=== PATIENT | female | born 1965 | race Two or more races ===

== ENCOUNTER 2017-03-11 02:59 | Inpatient (IN) | payer OTHER ==
[~2017-03-11] VITALS: Ht 165.1 cm; Wt 116.0 kg
[2017-03-11] VITALS (17 sets, daily range): BP systolic 106–149; BP diastolic 62–85
[~2017-03-11 02:59] MED LIST: CARI-277 PO; DOCU100C8 PO; NOR10T PO; ZOLP5TAB5 PO
[2017-03-11 03:58] LABS: Hematocrit 13.5 % (36.0-46.0); Mean Platelet Volume 7.6 fL (6.9-10.8)
[2017-03-11 04:02] LABS: Mean Corpuscular Volume 67.9 fL (80.0-100.0); Platelet Count (auto) 525 10^3/uL (140-450); Red Cell Distribution Width 19.3 % (11.8-14.3); White Blood Cell 10.7 10^3/uL (4.4-10.8)
[2017-03-11 04:20] LABS: Hemoglobin 3.8 g/dL (12.2-16.2)
[2017-03-11 04:21] LABS: Metamyelocytes % 0; Myelocytes % 0; Promyelocytes % 0; Reactive Lymphocytes 0
[2017-03-11 04:22] LABS: B-Type Natriuretic Peptide 37.39 pg/mL (0-100)
[2017-03-11 04:30] LABS: Albumin 2.7 g/dL (3.4-5.0); Alkaline Phosphatase 137 U/L (45-117); Anion Gap 9 (5-15); Aspartate Aminotransferase 11 U/L (15-37); BUN/Creatinine Ratio 19.8; Bilirubin, Total 0.3 mg/dL (0.2-1.0); Blood Urea Nitrogen 17 mg/dL (7-18); Calcium 8.1 mg/dL (8.5-10.1); Carbon Dioxide 23 mmol/L (21-32); Chloride 105 mmol/L (98-107); GFR African American 89 mL/min; GFR Non-African American 73 mL/min; Glucose 113 mg/dL (74-106); Magnesium 2.4 mg/dL (1.6-2.6); Sodium 137 mmol/L (136-145); Total Protein 7.2 g/dL (6.4-8.2)
[2017-03-11 04:44] LABS: Temperature: 21.9 C (20.0-25.0)
[2017-03-11 05:13] LABS: Anisocytosis Slight; Hypochromia Marked; Microcytosis Marked; Platelet Estimate Increased; Polychromasia Slight
[2017-03-11] MEDS ORDERED: SODIUM CHLORIDE 0.9% 1,000 ML IV ONE (05:15)
[2017-03-11 05:49] LABS: Hematocrit 12.6 % (36.0-46.0)
[2017-03-11 06:13] LABS: Hemoglobin 3.7 g/dL (12.2-16.2)
[2017-03-11] MEDS ORDERED: PIPERACILLIN-TAZOB 3.375GM 50 ML IV ONE (08:15)
[2017-03-11] MEDS ORDERED: TEMAZEPAM 15 MG CAP PO PRN (10:30)
[2017-03-11] MEDS ORDERED: ONDANSETRON HCL 4 MG/2 ML VIAL IV PRN (10:30)
[2017-03-11] MEDS ORDERED: ACETAMINOPHEN 325 MG TAB PO PRN (10:30)
[2017-03-11] MEDS ORDERED: cefTRIAXone 1GM/50ML D5W 50 ML IV ONE (10:30)
[2017-03-11] MEDS ORDERED: NITROGLYCERIN 0.4 MG SL TAB SL PRN (10:30)
[2017-03-11] MEDS ORDERED: DOCUSATE SOD 100 MG CAP PO PRN (10:30)
[2017-03-11] MEDS: SODIUM CHLORIDE 0.9% 1,000 ML IV SCH (11:16)
[2017-03-11] MEDS: ENOXAPARIN SOD 80 MG/0.8ML SYRINGE SC SCH ×3 (11:20→21:16)
[2017-03-11] MEDS: HYDROcodone-ACET 5/325MG TAB PO PRN ×3 (11:37→23:08)
[2017-03-11 12:23] LABS: Urine Bilirubin Negative (Negative); Urine Blood Negative /uL (Negative); Urine Color Yellow (Yellow); Urine Glucose Normal (Normal); Urine Ketone Negative (Negative); Urine Nitrite Negative (Negative); Urine RBC <1 /hpf (0 - 4); Urine Urobilinogen Normal (Negative); Urine pH 6.5 (5.0-8.0)
[2017-03-11] MEDS: CLINDAMYCIN 300MG IV 50 ML IV SCH ×2 (13:04→20:44)
[2017-03-11] MEDS: BOOST PLUS 8 ounce PO SCH ×2 (16:07→18:43)
[2017-03-11 18:17] LABS: Hematocrit 21.3 % (36.0-46.0)
[2017-03-11 18:22] LABS: Hemoglobin 6.8 g/dL (12.2-16.2)
[2017-03-11] MEDS ORDERED: FUROSEMIDE 20 MG/2 ML VIAL IV PRN (18:30)
[2017-03-11] MEDS: ASCORBIC ACID 500 MG TAB PO SCH ×2 (20:45→21:16)
[2017-03-11] MEDS: FAMOTIDINE 20 MG TAB PO SCH ×2 (20:45→21:16)
[2017-03-12] VITALS (10 sets, daily range): BP systolic 110–150; BP diastolic 64–83
[2017-03-12] MEDS: SODIUM CHLORIDE 0.9% 1,000 ML IV SCH ×2 (03:18→21:17)
[2017-03-12] MEDS: CLINDAMYCIN 300MG IV 50 ML IV SCH ×3 (04:27→20:35)
[2017-03-12 05:23] LABS: Basophils # (auto) 0 uL; Basophils % (auto) 0.5 % (0.0-2.0); Eosinophils # (auto) 0.2 uL; Eosinophils % (auto) 2.4 % (0.0-7.0); Hematocrit 25.4 % (36.0-46.0); Hemoglobin 8.1 g/dL (12.2-16.2); Lymphocytes % (auto) 27.1 % (10.0-50.0); Mean Corpuscular Hemoglobin 25.6 pg (28.0-32.0); Mean Corpuscular Hgb Conc. 31.9 g/dL (32.0-36.0); Mean Corpuscular Volume 80.4 fL (80.0-100.0); Mean Platelet Volume 7.9 fL (6.9-10.8); Monocytes # (auto) 0.7 uL; Monocytes % (auto) 9.2 % (0.0-12.0); Neutrophils # (auto) 4.4 uL; Neutrophils % (auto) 60.8 % (37.0-80.0); Nucleated Red Blood Cells % 2.3 %; Platelet Count (auto) 328 10^3/uL (140-450); White Blood Cell 7.3 10^3/uL (4.4-10.8)
[2017-03-12 05:24] LABS: Red Cell Distribution Width 23.4 % (11.8-14.3)
[2017-03-12 05:43] LABS: Albumin 2.2 g/dL (3.4-5.0); BUN/Creatinine Ratio 22.1; Calcium 8.1 mg/dL (8.5-10.1); Potassium 4.2 mmol/L (3.5-5.1)
[2017-03-12 05:46] LABS: Bilirubin, Total 0.3 mg/dL (0.2-1.0); Total Protein 6.1 g/dL (6.4-8.2)
[2017-03-12 06:23] LABS: Anisocytosis Slight; Burr Cells FEW; Platelet Estimate Adequate
[2017-03-12 06:24] LABS: Hypochromia Slight; Ovalocytes FEW
[2017-03-12] MEDS: BOOST PLUS 8 ounce PO SCH ×3 (07:16→17:04)
[2017-03-12] MEDS: cefTRIAXone 1GM/50ML D5W 50 ML IV SCH (08:31)
[2017-03-12] MEDS: ENOXAPARIN SOD 80 MG/0.8ML SYRINGE SC SCH ×2 (09:28→21:20)
[2017-03-12] MEDS: MULTIPLE VITAMIN TAB PO SCH (09:28)
[2017-03-12] MEDS: ZINC SULFATE 220 MG CAP PO SCH (09:28)
[2017-03-12] MEDS: ASCORBIC ACID 500 MG TAB PO SCH ×2 (09:28→21:17)
[2017-03-12] MEDS: FAMOTIDINE 20 MG TAB PO SCH ×2 (09:28→21:18)
[2017-03-12] MEDS: HYDROcodone-ACET 5/325MG TAB PO PRN ×2 (11:49→21:18)
[2017-03-12 20:01] LABS: Hematocrit 27.3 % (36.0-46.0); Hemoglobin 8.8 g/dL (12.2-16.2)
[2017-03-13] MEDS: CLINDAMYCIN 300MG IV 50 ML IV SCH ×3 (05:03→21:16)
[2017-03-13 05:11] VITALS: BP 113/70
[2017-03-13 06:36] LABS: Basophils # (auto) 0.1 uL; Eosinophils # (auto) 0.3 uL; Eosinophils % (auto) 3.5 % (0.0-7.0); Hemoglobin 8.4 g/dL (12.2-16.2); Mean Platelet Volume 7.9 fL (6.9-10.8); Monocytes # (auto) 0.6 uL; Neutrophils # (auto) 5.2 uL; White Blood Cell 8.1 10^3/uL (4.4-10.8)
[2017-03-13 06:39] LABS: Basophils % (auto) 1.3 % (0.0-2.0); Hematocrit 26.7 % (36.0-46.0); Lymphocytes # (auto) 1.9 uL; Lymphocytes % (auto) 23.2 % (10.0-50.0); Mean Corpuscular Hemoglobin 25.1 pg (28.0-32.0); Mean Corpuscular Hgb Conc. 31.4 g/dL (32.0-36.0); Mean Corpuscular Volume 79.8 fL (80.0-100.0); Monocytes % (auto) 7.8 % (0.0-12.0); Neutrophils % (auto) 64.2 % (37.0-80.0); Platelet Count (auto) 378 10^3/uL (140-450)
[2017-03-13 06:42] LABS: Albumin 2.4 g/dL (3.4-5.0); BUN/Creatinine Ratio 19.7; Bilirubin, Total 0.3 mg/dL (0.2-1.0); Calcium 8.1 mg/dL (8.5-10.1); Potassium 4.1 mmol/L (3.5-5.1); Total Protein 6.4 g/dL (6.4-8.2)
[2017-03-13 06:45] LABS: Red Cell Distribution Width 24.3 % (11.8-14.3)
[2017-03-13] MEDS: BOOST PLUS 8 ounce PO SCH ×3 (07:26→17:11)
[2017-03-13 08:00] VITALS: BP 122/78
[2017-03-13] MEDS: HYDROcodone-ACET 5/325MG TAB PO PRN ×2 (08:05→21:17)
[2017-03-13] MEDS: cefTRIAXone 1GM/50ML D5W 50 ML IV SCH (08:05)
[2017-03-13 09:00] VITALS: BP 122/78
[2017-03-13] MEDS: ZINC SULFATE 220 MG CAP PO SCH (09:06)
[2017-03-13] MEDS: ASCORBIC ACID 500 MG TAB PO SCH ×2 (09:07→21:17)
[2017-03-13] MEDS: MULTIPLE VITAMIN TAB PO SCH (09:07)
[2017-03-13] MEDS: FAMOTIDINE 20 MG TAB PO SCH ×2 (09:07→21:17)
[2017-03-13] MEDS: ENOXAPARIN SOD 80 MG/0.8ML SYRINGE SC SCH ×2 (09:07→21:18)
[2017-03-13 10:24] LABS: Anisocytosis Moderate; Platelet Estimate Adequate
[2017-03-13 10:28] LABS: Hypochromia Slight; Large Platelets FEW; Microcytosis Slight; Ovalocytes FEW
[2017-03-13] MEDS: SODIUM CHLORIDE 0.9% 1,000 ML IV SCH (11:35)
[2017-03-13 13:00] VITALS: BP 134/78
[2017-03-13 17:00] VITALS: BP 141/77
[2017-03-13 19:57] LABS: Hemoglobin 8.6 g/dL (12.2-16.2)
[2017-03-13 19:59] LABS: Hematocrit 27.3 % (36.0-46.0)
[2017-03-13] MEDS: MUPIROCIN 2% OINT 22GM EACHNOSTRI SCH (21:16)
[2017-03-13 21:57] VITALS: BP 147/86
[2017-03-14] MEDS: CLINDAMYCIN 300MG IV 50 ML IV SCH ×3 (04:48→21:31)
[2017-03-14 05:09] VITALS: BP 136/77
[2017-03-14] MEDS: SODIUM CHLORIDE 0.9% 1,000 ML IV SCH ×2 (05:40→21:32)
[2017-03-14 06:01] LABS: Basophils # (auto) 0.1 uL; Basophils % (auto) 0.7 % (0.0-2.0); Eosinophils # (auto) 0.4 uL; Monocytes # (auto) 0.6 uL
[2017-03-14 06:05] LABS: Eosinophils % (auto) 4.5 % (0.0-7.0); Hematocrit 25.4 % (36.0-46.0); Hemoglobin 8.1 g/dL (12.2-16.2); Lymphocytes % (auto) 25.1 % (10.0-50.0); Mean Corpuscular Hemoglobin 25.4 pg (28.0-32.0); Mean Corpuscular Hgb Conc. 31.7 g/dL (32.0-36.0); Mean Platelet Volume 7.8 fL (6.9-10.8); Monocytes % (auto) 7.4 % (0.0-12.0); Neutrophils % (auto) 62.3 % (37.0-80.0); Nucleated Red Blood Cells % 0.5 %; Platelet Count (auto) 359 10^3/uL (140-450); White Blood Cell 7.9 10^3/uL (4.4-10.8)
[2017-03-14 06:10] LABS: Red Cell Distribution Width 25.1 % (11.8-14.3)
[2017-03-14 06:35] LABS: Anisocytosis Moderate; Microcytosis Slight; Platelet Estimate Adequate
[2017-03-14 06:36] LABS: Polychromasia Slight
[2017-03-14 06:42] LABS: Albumin 2.3 g/dL (3.4-5.0); BUN/Creatinine Ratio 18.8; Bilirubin, Total 0.3 mg/dL (0.2-1.0); Calcium 8.1 mg/dL (8.5-10.1); Potassium 4.3 mmol/L (3.5-5.1); Total Protein 6.3 g/dL (6.4-8.2)
[2017-03-14] MEDS: BOOST PLUS 8 ounce PO SCH ×3 (07:34→17:18)
[2017-03-14 08:00] VITALS: BP 136/77
[2017-03-14] MEDS: cefTRIAXone 1GM/50ML D5W 50 ML IV SCH (08:12)
[2017-03-14 09:00] VITALS: BP 143/96
[2017-03-14] MEDS: MUPIROCIN 2% OINT 22GM EACHNOSTRI SCH ×2 (09:36→21:32)
[2017-03-14] MEDS: ZINC SULFATE 220 MG CAP PO SCH (09:37)
[2017-03-14] MEDS: FAMOTIDINE 20 MG TAB PO SCH ×2 (09:37→21:31)
[2017-03-14] MEDS: ENOXAPARIN SOD 80 MG/0.8ML SYRINGE SC SCH ×2 (09:37→21:32)
[2017-03-14] MEDS: ASCORBIC ACID 500 MG TAB PO SCH ×2 (09:37→21:31)
[2017-03-14] MEDS: MULTIPLE VITAMIN TAB PO SCH (09:37)
[2017-03-14 13:00] VITALS: BP 119/72
[2017-03-14] MEDS: HYDROcodone-ACET 5/325MG TAB PO PRN ×3 (13:03→23:49)
[2017-03-14] MEDS ORDERED: GOLYTELY 4L KIT PO ONE (13:30)
[2017-03-14 13:57] LABS: Vitamin B12 215 pg/mL (211-911)
[2017-03-14 13:58] LABS: Temperature: 21.5 C (20.0-25.0)
[2017-03-14 17:00] VITALS: BP 141/85
[2017-03-14] MEDS ORDERED: PRO-STAT 64 30ML PO SCH (18:00)
[2017-03-14 21:27] VITALS: BP 136/79
[2017-03-14 21:31] LABS: Hemoglobin 7.7 g/dL (12.2-16.2)
[2017-03-14 21:33] LABS: Hematocrit 24.3 % (36.0-46.0)
[2017-03-15 08:07] LABS: Thyroid Peroxidase (TPO) Ab 17 IU/mL (0-34)
[2017-03-15 18:10] LABS: Sjogren's Anti-SS-A Antibody <0.2 AI (0.0-0.9)
[2017-03-16 05:09] LABS: Haptoglobin 228 mg/dL (34-200)
[2017-03-16 10:09] LABS: Anti-intermyofibrillar Ab Negative (Neg:<1:20); Anti-sarcolemma Antibody Negative (Neg:<1:20)
== END 2017-03-15 01:26 | disposition left against medical advice (07) | DRG 720 ==
LOC: ER 03:01 → TELE 03:02 → TELE-EAST 13:35
PROVIDERS: ADMIT Internal Medicine; ATTEND Internal Medicine
PROC: 30233N1 Transfusion of Nonautologous Red Blood Cells into Peripheral Vein, Percutaneous Approach (ICD-10-PCS; principal; 2017-03-11)
DX: A41.9 Sepsis, unspecified organism (principal); I50.42 Chronic combined systolic (congestive) and diastolic (congestive) heart failure; E44.0 Moderate protein-calorie malnutrition; I82.492 Acute embolism and thrombosis of other specified deep vein of left lower extremity; Z68.41 Body mass index [BMI] 40.0-44.9, adult; E83.51 Hypocalcemia; L03.115 Cellulitis of right lower limb; L03.116 Cellulitis of left lower limb; G47.00 Insomnia, unspecified; Z53.21 Procedure and treatment not carried out due to patient leaving prior to being seen by health care provider; D64.9 Anemia, unspecified; N18.2 Chronic kidney disease, stage 2 (mild); K44.9 Diaphragmatic hernia without obstruction or gangrene; Z83.49 Family history of other endocrine, nutritional and metabolic diseases; Z86.718 Personal history of other venous thrombosis and embolism; Z81.8 Family history of other mental and behavioral disorders
CPT/HCPCS: 36415; 36430; 51702; 71010; 80053; 81001; 82270; 82378; 82607; 82668; 82728; 82746; 83010; 83540; 83550; 83605; 83615; 83735; 83880; 84439; 84443; 84484; 85007; 85014; 85018; 85025; 85027; 85045; 85652; 86225; 86235; 86850; 86880; 86885; 86900; 86901; 86920; 87040; 87077; 87081; 87086; 87186; 87205; 93005; 93306; 93970; 96361; 96365; J0696; J2543; J3490

== ENCOUNTER 2018-10-21 15:06 | Emergency (ER) | payer OTHER ==
[~2018-10-21] VITALS: Ht 165.1 cm; Wt 86.2 kg
[2018-10-21] MEDS ORDERED: ACETAMINOPHEN 500 MG TAB PO ONE (16:15)
[2018-10-21 16:29] VITALS: BP 161/101
== END 2018-10-21 17:14 | disposition home or self-care (01) ==
LOC: ER 15:06
DX: S02.2XXA Fracture of nasal bones, initial encounter for closed fracture (principal); S63.501A Unspecified sprain of right wrist, initial encounter; S00.81XA Abrasion of other part of head, initial encounter; W01.0XXA Fall on same level from slipping, tripping and stumbling without subsequent striking against object, initial encounter; Y93.89 Activity, other specified; Y99.8 Other external cause status; Y92.89 Other specified places as the place of occurrence of the external cause
CPT/HCPCS: 29125; 70160; 73110

== ENCOUNTER 2022-01-05 20:26 | Emergency (ER) | payer OTHER ==
[~2022-01-05] VITALS: Ht 165.1 cm; Wt 110.0 kg
[2022-01-05 22:51] LABS: Basophils # (auto) 0 10 ^3/uL (0-0.2); Hemoglobin 9.6 g/dL (12.2-16.2); Nucleated Red Blood Cells % 0.1 %
[2022-01-05 22:54] LABS: Basophils % (auto) 0.6 % (0.0-2.0); Eosinophils # (auto) 0.3 10 ^3/uL (0-0.8); Eosinophils % (auto) 3.7 % (0.0-7.0); Hematocrit 32.2 % (36.0-46.0); Lymphocytes # (auto) 1.2 10 ^3/uL (0.4-5.4); Lymphocytes % (auto) 16.4 % (10.0-50.0); Mean Corpuscular Hemoglobin 20.8 pg (28.0-32.0); Mean Corpuscular Hgb Conc. 29.8 g/dL (32.0-36.0); Mean Corpuscular Volume 69.8 fL (80.0-100.0); Monocytes # (auto) 0.4 10 ^3/uL (0-1.3); Neutrophils # (auto) 5.5 10 ^3/uL (1.6-8.6); Neutrophils % (auto) 73.3 % (37.0-80.0); Red Blood Cells 4.62 10^6/uL (4.0-5.20); White Blood Cell 7.5 10^3/uL (4.4-10.8)
[2022-01-05 22:56] LABS: Red Cell Distribution Width 22.4 % (11.8-14.3)
[2022-01-05 23:09] LABS: INR 1.02 (0.9-1.15)
[2022-01-05 23:14] LABS: Albumin 3.1 g/dL (3.4-5.0); Calcium 8.9 mg/dL (8.5-10.1); Potassium 4.6 mmol/L (3.5-5.1)
[2022-01-05 23:17] LABS: BUN/Creatinine Ratio 30.1
[2022-01-05 23:20] LABS: Bilirubin, Total 0.3 mg/dL (0.2-1.0); Total Protein 7.7 g/dL (6.4-8.2)
[2022-01-06] MEDS ORDERED: APIX5TAB PO (03:43)
[2022-01-06 04:36] VITALS: BP 129/77
== END 2022-01-06 04:38 | disposition home or self-care (01) ==
LOC: ER 20:29
DX: I82.4Z2 Acute embolism and thrombosis of unspecified deep veins of left distal lower extremity (principal)
CPT/HCPCS: 36415; 71045; 80053; 83880; 84484; 85025; 85610; 93005; 93970

== ENCOUNTER 2023-12-26 19:48 | Emergency (ER) | payer OTHER ==
[~2023-12-26] VITALS: Ht 165.1 cm; Wt 91.0 kg
[~2023-12-26 19:48] MED LIST changes: +APIX5TAB PO; -CARI-277 PO; -DOCU100C8 PO; -NOR10T PO; -ZOLP5TAB5 PO
[2023-12-26] MEDS: HYDROmorphone HCL 2 MG/ML VL/or syr IV ONE (21:15)
[2023-12-26 21:45] LABS: Basophils # (auto) 0 10 ^3/uL (0-0.2); Basophils % (auto) 0.2 % (0.0-2.0); Eosinophils # (auto) 0 10 ^3/uL (0-0.8); Hemoglobin 7.2 g/dL (12.2-16.2); Monocytes # (auto) 0.6 10 ^3/uL (0-1.3); Nucleated Red Blood Cells % 0.1 %; Red Cell Distribution Width 19.9 % (11.8-14.3); White Blood Cell 15.3 10^3/uL (4.4-10.8)
[2023-12-26 21:47] LABS: Eosinophils % (auto) 0.1 % (0.0-7.0); Lymphocytes # (auto) 0.6 10 ^3/uL (0.4-5.4); Lymphocytes % (auto) 3.9 % (10.0-50.0); Mean Corpuscular Hgb Conc. 30.2 g/dL (32.0-36.0); Mean Corpuscular Volume 66.3 fL (80.0-100.0); Monocytes % (auto) 3.9 % (0.0-12.0); Neutrophils # (auto) 14.1 10 ^3/uL (1.6-8.6); Neutrophils % (auto) 91.9 % (37.0-80.0); Platelet Count (auto) 256 10^3/uL (140-450); Red Blood Cells 3.62 10^6/uL (4.0-5.20)
[2023-12-26 22:04] LABS: Alanine Aminotransferase 65 U/L (7-40); Albumin 3.7 g/dL (3.2-4.8); Alkaline Phosphatase 180 U/L (46-116); Anion Gap 5 (5-15); Aspartate Aminotransferase 45 U/L (13-40); BUN/Creatinine Ratio 21.3 (10.0-20.0); Bilirubin, Total 0.4 mg/dL (0.2-1.0); Blood Urea Nitrogen 23 mg/dL (9-23); Calcium 8.9 mg/dL (8.7-10.4); Carbon Dioxide 24 mmol/L (20-30); Chloride 106 mmol/L (98-107); Glucose 105 mg/dL (74-106); Potassium 3.6 mmol/L (3.5-5.1); Sodium 135 mmol/L (136-145)
[2023-12-26 22:34] LABS: INR 1.22 (0.9-1.15); Partial Thromboplastin Time 30.8 SEC (24.5-34.5); Prothrombin Time 12.7 sec (9.3-11.8)
[2023-12-26] MEDS: PIPERACILLIN-TAZOB 3.375GM 100 ML IV ONE (23:15)
[2023-12-26] MEDS: VANCOMYCIN 1GM/200ML 200 ML IV ONE (23:49)
[2023-12-27] MEDS ORDERED: LEVO500T91 PO (00:55)
[2023-12-27] MEDS ORDERED: DOXY-286 PO (00:55)
[2023-12-27] MEDS: SODIUM CHLORIDE 0.9% 1,000 ML IV ONE (01:10)
[2023-12-27] MEDS: ONDANSETRON HCL 4 MG/2 ML VIAL IV ONE (01:25)
[2023-12-27] MEDS: MORPHINE SULFATE INJ 2 MG/ml SYRG IV ONE (01:26)
[2023-12-27 01:32] VITALS: TEMP 98.3; O2SAT 97
[2023-12-27 01:45] VITALS: BP 140/80; PULSE 84; RESP 20
== END 2023-12-27 01:45 | disposition home or self-care (01) ==
LOC: EDBD 19:48 → ER 19:48
DX: L03.116 Cellulitis of left lower limb (principal); L03.115 Cellulitis of right lower limb; R79.89 Other specified abnormal findings of blood chemistry; Z98.890 Other specified postprocedural states
CPT/HCPCS: 36415; 71045; 80053; 83880; 84484; 85025; 85610; 85730; 87040; 93970; 96365; 96366; 96368; 96375; 99285; J2270; J2405; J2543; J3370